=== PATIENT | male | born 1955 | race Caucasian/White ===

== ENCOUNTER 2022-06-04 10:33 | Emergency (ER) | payer MEDICARE ==
[~2022-06-04] VITALS: Ht 185.4 cm; Wt 110.0 kg
[2022-06-04 10:35] VITALS: BP 120/81
[2022-06-04] MEDS ORDERED: TETanus/Pertussis (Acell)/Diphther VAC/PF (Tdap-Adult) 0.5ml syringe IMVAC ONE (11:00)
[2022-06-04] MEDS ORDERED: LIDOcaine 1% W/epiNEPHrine 1:200,000 10ml vial IJ ONE (11:00)
[2022-06-04] MEDS ORDERED: LIDOcaine 1% W/epiNEPHrine 1:100,000 20ml vial IJ ONE (11:10)
--- NOTE | 2022-06-04 11:46 | NUR ---
INVESTIGATION ANIMAL CONTROL REPORT FAXED TO [facility] ANIMAL REGULATIONS AT .
[2022-06-04] MEDS ORDERED: AMOX-580 PO (12:10)
[2022-06-04] MEDS ORDERED: MUPI22OI30 TOP (13:04)
[2022-06-05] MEDS ORDERED: TRAM50TA2 PO ×2 (11:11)
[2022-06-06] MEDS ORDERED: TRAM50TA2 PO (09:45)
== END 2022-06-04 12:19 | disposition home or self-care (01) ==
LOC: ER 10:33
DX: S51.812A Laceration without foreign body of left forearm, initial encounter (principal); Z23 Encounter for immunization; W54.0XXA Bitten by dog, initial encounter; Y93.89 Activity, other specified; Y92.89 Other specified places as the place of occurrence of the external cause; Y99.8 Other external cause status
CPT/HCPCS: 12002; 90471; 90715; 99283; J3490; A6258; A6449

== ENCOUNTER 2022-06-13 09:44 | Emergency (ER) | payer MEDICARE ==
[~2022-06-13] VITALS: Ht 185.4 cm; Wt 108.2 kg
[~2022-06-13 09:44] MED LIST: AMOX-580 PO; TRAM50TA2 PO
[2022-06-13 09:46] VITALS: BP 168/83
[2022-06-13] MEDS ORDERED: AMOX-580 PO (10:35)
[2022-06-13] MEDS ORDERED: DOXY-411 PO (10:35)
== END 2022-06-13 10:54 | disposition home or self-care (01) ==
LOC: ER 09:44
DX: S51.812D Laceration without foreign body of left forearm, subsequent encounter (principal); Z48.00 Encounter for change or removal of nonsurgical wound dressing; Z79.899 Other long term (current) drug therapy; Z79.1 Long term (current) use of non-steroidal anti-inflammatories (NSAID); Z79.2 Long term (current) use of antibiotics; W54.0XXD Bitten by dog, subsequent encounter
CPT/HCPCS: 99283

== ENCOUNTER 2022-06-15 08:54 | Emergency (ER) | payer MEDICARE ==
[~2022-06-15] VITALS: Ht 185.4 cm; Wt 107.0 kg
[~2022-06-15 08:54] MED LIST changes: +DOXY-411 PO
[2022-06-15] MEDS ORDERED: MUPI22OI30 TOP (09:27)
[2022-06-15 09:35] VITALS: BP 3/82
== END 2022-06-15 09:37 | disposition home or self-care (01) ==
LOC: ER 08:54
DX: S61.432D Puncture wound without foreign body of left hand, subsequent encounter (principal); Z79.899 Other long term (current) drug therapy; X58.XXXD Exposure to other specified factors, subsequent encounter
CPT/HCPCS: 99283

== ENCOUNTER 2022-06-17 10:53 | Emergency (ER) | payer MEDICARE ==
[~2022-06-17] VITALS: Ht 185.4 cm; Wt 108.0 kg
[~2022-06-17 10:53] MED LIST changes: +MUPI22OI30 TOP
[2022-06-17 11:11] VITALS: BP 129/66
== END 2022-06-17 13:00 | disposition home or self-care (01) ==
LOC: ER 10:54
DX: S50.912D Unspecified superficial injury of left forearm, subsequent encounter (principal); X58.XXXD Exposure to other specified factors, subsequent encounter
CPT/HCPCS: 99281